=== PATIENT | male | born 1985 | race African-American/Black ===

== ENCOUNTER 2022-12-11 17:41 | Emergency (ER) | payer SELFPAY ==
[2022-12-11] MEDS ORDERED: levETIRAcetam 500 MG Tab PO STA (17:52)
== END 2022-12-11 18:18 | disposition home or self-care (01) ==
LOC: JD.ED 17:41
DX: G40.909 Epilepsy, unspecified, not intractable, without status epilepticus (principal); F17.210 Nicotine dependence, cigarettes, uncomplicated; E66.9 Obesity, unspecified; Z68.41 Body mass index [BMI] 40.0-44.9, adult
CPT/HCPCS: 99284; A9270; 99283